=== PATIENT | female | born 1945 | race Caucasian/White ===

== ENCOUNTER → 2016-07-20 | Outpatient (CLI) | payer BC ==
--- NOTE | ~2016-07-20 | ST ---
Unit #: [id number] #: [id number] Patient: RAH ENCISO [id number] [address] [place], [place] [address] [id number] O MR#: [id number] NAME: RAH ENCISO : 1945 SEX: F STUDY DATE/TIME: 07/20/2016 UNIT: [facility] ROOM: STUDY DESCRIPTION: Exercise Cardiolite stress Attending Physician: Buzz Lujan M.D. Referring Physician: Buzz Lujan M.D. Primary Care Physician: Buzz Lujan M.D. CARDIOLOGY REPORT EXAM Exercise Cardiolite stress test. FINDINGS Baseline EKG: Normal sinus rhythm with ventricular rate 67 beats per minute, left atrial abnormality, Q wave noted in V1, poor R wave progression, and, also, Q wave noted in lead III. Patient walked on the treadmill for 6 minutes utilizing Luis protocol achieving a workload of 7 METs. She achieved 92% of maximum target heart rate at 139 beats per minute with a maximum blood pressure response of 180/84 mmHg. EKG during the test showed a 0.[address] depression in inferior leads and some nonspecific ST-T wave abnormalities in anterolateral leads. Patient had no complaints of chest pain, palpitations, or dizziness. Had increased shortness of breath and fatigue, which resolved in recovery phase. IMPRESSION 1. Functional class 3 with a workload of 7 METs. 2. Patient walked for 6 minutes, achieving 92% of maximum target heart rate at 139 beats per minute with a slightly hypertensive blood pressure response of 180/84 mmHg. 3. It is noted at the end of recovery phase that patient's blood pressure decreased down to 134/88 mmHg. 4. EKG during the test showed some 0.[address] depression in the inferior leads and some nonspecific ST-T wave abnormalities in the anterolateral leads. 5. Patient had no complaints of chest pain, palpitations, or dizziness. Had increased shortness of breath and fatigue, which resolved in recovery phase. 6. Cardiolite was injected after maximum target heart rate. Radionuclide test pending. Please correlate with nuclear images. Dictated by... Leann Pearson A.P.R.N. for Hiram Maxwell/pc Unit #: [id number] #: [id number] Patient: RAH ENCISO TD: 07/20/2016 11:05 JOB #: [id number] CARDIOLOGY REPORT Page 1 of 1 X Leann Pearson APRN CARDIOLOGY REPORT
--- NOTE | ~2016-07-20 | TH ---
Unit #: [id number] #: [id number] Patient: RAH ENCISO [id number] [address] [address] [id number] O MR#: [id number] NAME: RAH ENCISO : 1945 SEX: F STUDY DATE/TIME: 07/20/2016 UNIT: [facility] ROOM: STUDY DESCRIPTION: Attending Physician: Buzz Lujan M.D. Referring Physician: Buzz Lujan M.D. Primary Care Physician: Buzz Lujan M.D. CARDIOLOGY REPORT EXAM Exercise Cardiolite stress test, nuclear portion. PROCEDURE Using technetium 99m labeled Cardiolite, rest and stress SPECT images were obtained. Multiple SPECT images were obtained in various views including horizontal and vertical long axis and short axis views of the left ventricle. Images were obtained by gated SPECT method. The patient was administered 11.17 mCi of Cardiolite at rest. The patient was administered 34.1 mCi of Cardiolite at peak exercise. Total exercise time is 6 minutes. On the stress images, there is normal perfusion noted. The rest images showed normal perfusion. Comparing rest and stress images, there is no stress-induced ischemia noted. The left ventricular ejection fraction is calculated to be 72%. There is no focal wall motion abnormality seen. CONCLUSION 1. No stress-induced ischemia noted. 2. The left ventricular ejection fraction is calculated to be 72%. 3. There is no focal wall motion abnormality seen. 4. Normal nuclear portion of the stress test. 5. It must be noted that the patient's baseline blood pressure was 143/95 mmHg. She had hypertensive blood pressure response with a peak blood pressure of 180/84 mmHg. Dictated by.Hiram Zepeda TD: 07/20/2016 11:07 JOB #: [id number] CC: Buzz Lujan M.D. Unit #: [id number] #: [id number] Patient: RAH ENCISO CARDIOLOGY REPORT Page 1 of 1 X Lashell Hernández MD <ELECTRONICALLY SIGNED> 10/14/16 1429 CARDIOLOGY REPORT
== END | disposition home or self-care (01) ==
LOC: CNUC 07:54
DX: R07.9 Chest pain, unspecified (principal); R94.39 Abnormal result of other cardiovascular function study
CPT/HCPCS: 78452; 93017; A9500

== ENCOUNTER → 2016-10-10 | Outpatient (CLI) | payer BC ==
--- NOTE | ~2016-10-10 | CT2 ---
[facility] A Service of [facility] RADIOLOGY TEXT RESULTS PATIENT: RAH ENCISO LOCATION: [facility] : 47 UNIT #: [id number] AGE: [address]: Buzz Lujan MD SEX: F ORDER DR: [id number] [facility]. [place], [place] [address] [id number] O MR#: [id number] Acc #: [id number] NAME: RAH ENCISO : 1945 SEX: F STUDY DATE/TIME: 10/10/2016 14:24 UNIT: [facility] ROOM: STUDY DESCRIPTION: CT Abd and Pelv W Cont Attending Physician: Buzz Lujan M.D. Referring Physician: Buzz Lujan M.D. Ordering Physician: Buzz Lujan M.D. Primary Care Physician: Buzz Lujan M.D. MEDICAL IMAGING REPORT This report is preliminary unless electronic signature is present EXAM CT abdomen and pelvis with contrast INDICATIONS Right upper quadrant pain. Right flank pain for [address] scan of the abdomen and pelvis was performed following administration of oral and IV contrast. Coronal and sagittal reformatted images were obtained. This CT exam was performed with one or more of the following radiation dose reduction techniques: automatic exposure control, adjustment of mA and/or kV according to patient size, and iterative reconstruction. COMPARISON STUDIES No comparisons available. FINDINGS There are 3 tiny nodular densities in the base of the right lower lobe, 2 of them are adjacent to the pleural surface. Index nodule measures about 6 mm. There is also a tiny, more higher density nodule in the base of the right lower lobe on image 19 which is probably a granuloma. The liver is unremarkable. Cholecystectomy. The spleen is unremarkable. Multiple presumed parapelvic cysts in the left kidney. There is a simple cyst in the right kidney. The adrenal glands are unremarkable. The pancreas is unremarkable. PELVIS: Hysterectomy. The appendix is not visualized. There is no secondary sign of appendicitis. No free fluid in the pelvis. The bone windows are unremarkable. [facility] A Service of [facility] RADIOLOGY TEXT RESULTS PATIENT: ARH ENCISO LOCATION: [facility] : [birth year] UNIT #: [id number] AGE: [address]: Buzz Lujan MD SEX: F ORDER DR: IMPRESSION 1. No CT findings to explain the patient's symptoms. 2. Bilateral renal cysts are noted. 3. There is a tiny amount of nodularity in the base of the right lower lobe. These may be nodules or possibly some nodular areas of atelectasis. A follow-up chest CT could be performed in 6-12 months to document stability or clearing. Dictated by... Evgeny José M.D. THIS IS AN ELECTRONICALLY VERIFIED REPORT Evgeny José M.D. at 10/13/2016 4:01 PM EMMY/shi TD: 10/11/2016 19:54 JOB #: [id number] MEDICAL IMAGING REPORT Page 1 of 1 COPY
[2016-10-10 17:16] LABS: POC - GFR >60.0 mL/min (>60)
== END | disposition home or self-care (01) ==
LOC: CCAT 13:05
PROVIDERS: Internal Medicine
DX: R10.11 Right upper quadrant pain (principal); N28.1 Cyst of kidney, acquired
CPT/HCPCS: 74177; 82565; Q9967